=== PATIENT | female | born 1955 | race Caucasian/White ===

== ENCOUNTER 2016-08-09 15:06 | Emergency (ER) | payer MEDICARE ==
[2016-08-09 15:49] LABS: BASOPHIL % 0.5 % (0.0-0.4); Eosinophil % 2.4 % (0.00-5.0); Granulocytes % 65.3 % (36.0-66.0); Mean Corpuscular Hemoglobin 30.4 pg (26-32); Mean Platelet Volume 9.2 fl (6-9.5); Monocytes % 8.8 % (0.0-12.0); Platelet Count 260 K/mm3 (150-450); Red Blood Count 4.73 M/mm3 (4.1-5.4); Red Cell Distribution Width 13.4 % (11.5-14.0); White Blood Count 6.1 K/mm3 (4.0-10.5)
[2016-08-09 16:07] LABS: Collection Type VOID; Ph 5.5 (5-6)
[2016-08-09 16:08] LABS: COMPLETE URINE MICROSCOPIC? YES
[2016-08-09 16:15] LABS: Bacteria MODERATE /HPF (NEGATIVE); Epithelial Cells MANY /HPF (FEW); WBC 15-25 /HPF (0-5); Yeast FEW /HPF (NEGATIVE)
[2016-08-09 16:17] LABS: ALBUMIN 3.6 g/dL (3.4-5.0); ANION GAP 12.5 MEQ/L (5-15); BILIRUBIN,TOTAL 0.4 mg/dL (0.2-1.0); Carbon Dioxide 27.6 mEq/L (21-32); Potassium 4.8 mEq/L (3.5-5.1); Total Protein 7.2 gm/dL (6.4-8.2)
[2016-08-09 16:18] LABS: ACETAMINOPHEN 4.8 ug/ml (10-30)
--- NOTE | 2016-08-09 18:09 | ERPHSYRPT ---
- History of Present Illness Source: patient, old records, other (LMD) Exam Limitations: no limitations Patient Subjective Stated Complaint: PATIENT STATES FEELING SUICIDAL FOR A YEAR. SAW DR. BAUTISTA TODAY AND WANTED TO TRY DIFFERENT DEPRESSION MED. PATIENT TOLD DR. BAUTISTA THAT SHE HAD A PLAN TO CUT HER WRISTS IN THE BATHTUB. Triage Nursing Assessment: TO ROOM PER SELF. PATIENT COOPERATIVE, A/O, SKIN W/D , COLOR NORMAL. STATES HAS BEEN HAVING SUICIDAL THOUGHTS FOR ONE YEAR AND WANTED TO GET MEDS CHANGED TODAY AT DR'S OFFICE. TOLD DR. BAUTISTA SHE HAD A PLAN TO CUT HER WRISTS AND DR. BAUTISTA WANTED HER SEEN IN ER Timing/Duration: today (expressed suicidal plans to LMD and staff), week(s) ( worsening of depression), constant (depression) Severity of Symptoms-Max: severe Severity of Symptoms-Current: moderate Context related to: living circumstances, other (life in general) Suicidal thoughts: specific plan Associated Symptoms: depressed Previous symptoms: same symptoms as today, recently seen Hx Tetanus, Diphtheria Vaccination/Date Given: No Hx Influenza Vaccination/Date Given: No Hx Pneumococcal Vaccination/Date Given: No <PAOLO CARREON - Last Filed: 08/09/16 18:04> <MATTEO PATEL - Last Filed: 08/09/16 23:27> - History of Present Illness Time Seen by Provider: 08/09/16 15:23 Physician History: patient brought to ED by office staff from her LMD because she was depressed in the office and stated she had a plan - " I'm going to get in the bath tub and open my veins ( i.e. cut my wrists). She states she has been depressed for years; her current meds is not helping and hasn't helped for months; no history of suicidal attempts but states she has had the plan for years, just never acted on it. She is not sure if she is rady to act on it now or not; no other acute complaints; became more depressed when recently diagnosed with DM (PAOLO CARREON) Allergies/Adverse Reactions: ibuprofen [From Motrin] Adverse Reaction (Intermediate, Unverified 07/24/11 21: 02) abdominal pain NSAIDS (Non-Steroidal Anti-Inflamma Adverse Reaction (Intermediate, Unverified 07/24/11 21:03) abdominal pain acetaminophen [From Tylox] Adverse Reaction (Mild, Unverified 07/24/11 21:03) Nausea oxycodone HCl [From Tylox] Adverse Reaction (Mild, Unverified 07/24/11 21:03) Nausea Home Medications: Citalopram Hydrobromide 20 mg* [ceLEXa 20 MG] 60 mg PO HS 07/24/11 [History] Hydrocodone Bit/Acetaminophen [Vicodin Hp Tablet] 1 each PO Q6H PRN PRN [History] Lisinopril 20 mg PO BID 07/24/11 [History] Magnesium 400 mg PO DAILY 07/24/11 [History] Omeprazole 20 MG [Prilosec 20 mg] 40 mg PO DAILY 07/24/11 [History] Potassium Chloride 20 Meq [Klor-Con 20 MEQ] 40 meq PO BID 07/24/11 [History] Alprazolam 1 mg [Xanax 1 mg] 1 mg PO QID 08/09/16 [History] Furosemide 40 mg [Lasix 40 MG] 40 mg PO DAILY 08/09/16 [History] Metformin HCl 500 mg [Glucophage 500 MG] 500 mg PO BID 08/09/16 [History] - Past Medical History Pertinent Past Medical History: Yes Cardiac History: Hypertension Endocrine Medical History: Diabetes Type II Musculoskeletal History: Osteoarthritis, Other Psycho-Social History: Anxiety, Depression Other Medical History: Chronic Pain - Past Surgical History Past Surgical History: Yes Gastrointestinal: Cholecystectomy Musculoskeletal: Orthopedic Surgery Other Surgical History: BOTH KNEES - Social History Smoking Status: Current every day smoker How long have you smoked: 22 years Exposure to second hand smoke: Yes Alcohol Use: None Drug Use: none Patient Lives Alone: Yes Significant Family History: no pertinent family hx - Female History Hx Now: No <PAOLO CARREON - Last Filed: 08/09/16 18:04> - Review of Systems Constitutional: No Symptoms Eyes: No Symptoms Ears, Nose, & Throat: No Symptoms Respiratory: No Cough, No Dyspnea, No Wheezing Cardiac: No Chest Pain, No Palpitations, No Syncope Abdominal/Gastrointestinal: No Abdominal Pain, No Nausea, No Vomiting, No Diarrhea Genitourinary Symptoms: No Dysuria, No Frequency, No Hematuria Musculoskeletal: No Symptoms Skin: No Symptoms Neurological: No Symptoms Psychological: Depression, Suicidal Ideations, No Alcohol Abuse, No Drug Abuse, No Anxiety, No Hallucinations Endocrine: Polyuria, Polydipsia Hematologic/Lymphatic: No Symptoms Immunological/Allergic: No Symptoms <PAOLO CARREON - Last Filed: 08/09/16 18:04> - Physical Exam General Appearance: mild distress, alert Eyes, Ears, Nose, Throat Exam: normal ENT inspection, TMs normal, pharynx normal , moist mucous membranes Neck Exam: normal inspection, non-tender, supple, full range of motion, No Kernig's, No JVD Respiratory Exam: normal breath sounds, lungs clear, airway intact, No chest tenderness, No respiratory distress Cardiovascular Exam: regular rate/rhythm, normal heart sounds, normal peripheral pulses, capillary refill <2 sec, No murmur Gastrointestinal/Abdominal Exam: soft, normal bowel sounds, No tenderness, No guarding, No rebound, No organomegaly Extremities Exam: normal inspection, normal range of motion, No evidence of injury, No edema Peripheral Pulses: carotid (R): 4+, carotid (L): 4+, femoral (R): 4+, femoral (L ): 4+ Current Suicidality: has suicide plan Neurological Exam: alert, calm, insurance sales executive II-XII nml as tested, oriented x 3, responds to pain, depressed affect Appearance: appropriate appearance, appropriate insight, no memory impairment Behavior/Eye Contact/Speech: alert & cooperative, cooperative, good eye contact , normal speech Thoughts/Hallucinations: normal thought pattern, no apparent hallucination, No delusions, No flight of ideas, No grandiose, No paranoid Skin Exam: normal color, warm, dry, No rash SpO2 Interpretation: normal SpO2: 98 Oxygen Delivery: Room Air <PAOLO CARREON - Last Filed: 08/09/16 18:04> - Course Nursing assessment & vital signs reviewed: Yes <PAOLO CARREON - Last Filed: 08/09/16 18:04> <MATTEO PATEL - Last Filed: 08/09/16 23:27> Ordered Tests: Active Orders 24 hr Category Date Time Status Accucheck STAT Care 08/09/16 15:22 Completed Psychiatric Evaluation STAT Care 08/09/16 15:22 Active Re-Check Vital Signs STAT Care 08/09/16 15:22 Completed Regular Diet Diet 08/09/16 Breakfast Active ACETAMINOPHEN Stat Lab 08/09/16 15:43 Completed CBC W DIFF Stat Lab 08/09/16 15:43 Completed CMP Stat Lab 08/09/16 15:43 Completed CULTURE,URINE Stat Lab 08/09/16 15:22 Received Ethyl Alcohol,Urine Stat Lab 08/09/16 15:35 Completed SALICYLATE Stat Lab 08/09/16 15:43 Completed UA W/ MICROSCOPIC Stat Lab 08/09/16 15:35 Completed Urine Triage Profile Stat Lab 08/09/16 15:35 Completed Medication Summary Generic Name Dose Route Start Last Admin Trade Name Freq PRN Reason Stop Dose Admin Nitrofurantoin Macrocrystals 100 mg 08/09/16 23:21 Macrobid 100mg Capsule PO 08/09/16 23:22 STAT ONE Lab/Rad Data: Laboratory Result Diagrams 08/09/16 15:43 08/09/16 15:43 Laboratory Results 08/09/16 08/09/16 08/09/16 Range/Units 15:43 15:43 15:35 WBC 6.1 (4.0-10.5) K/mm3 RBC 4.73 (4.1-5.4) M/mm3 Hgb 14.4 (12.0-16.0) gm/dl Hct 45.4 (35-47) % MCV 96.0 (78-100) fl MCH 30.4 (26-32) pg MCHC 31.7 L (32-36) g/dl RDW 13.4 (11.5-14.0) % Plt Count 260 (150-450) K/mm3 MPV 9.2 (6-9.5) fl Gran % 65.3 (36.0-66.0) % Lymphocytes % 23.0 L (24.0-44.0) % Monocytes % 8.8 (0.0-12.0) % Eosinophils % 2.4 (0.00-5.0) % Basophils % 0.5 (0.0-0.4) % Basophils # 0.03 (0-0.4) Sodium 139 (136-145) mEq/L Potassium 4.8 (3.5-5.1) mEq/L Chloride 104 (98-107) mEq/L Carbon Dioxide 27.6 (21-32) mEq/L Anion Gap 12.5 (5-15) MEQ/L BUN 15 (9-20) mg/dL Creatinine 1.10 (0.55-1.30) mg/dl Estimated GFR 54 ML/MIN Glucose 97 (70-110) MG/DL Calcium 10.3 H (8.5-10.1) mg/dL Total Bilirubin 0.4 (0.2-1.0) mg/dL AST 31 (15-37) U/L ALT 41 (12-78) U/L Alkaline Phosphatase 65 (46-116) U/L Serum Total Protein 7.2 (6.4-8.2) gm/dL Albumin 3.6 (3.4-5.0) g/dL Ur Collection Type Urine Color (YELLOW) Urine Appearance (CLEAR) Urine pH 5.5 (5-6) Ur Specific [place] (1.005-1.025) Urine Protein (Negative) Urine Glucose (UA) (NEGATIVE) mg/dL Urine Ketones (NEGATIVE) Urine Nitrite (NEGATIVE) Urine Bilirubin (NEGATIVE) Urine Urobilinogen (0-1) mg/dL Urine WBC (Auto) (NEGATIVE) Urine RBC (Auto) (0-5) Jason/ul Urine Microscopic RBC (0-2) /HPF Urine Microscopic WBC (0-5) /HPF Ur Epithelial Cells (FEW) /HPF Urine Bacteria (NEGATIVE) /HPF Urine Yeast (NEGATIVE) /HPF Salicylates 4.0 (2.8-20.0) mg/dl Urine Opiates Level (NEGATIVE) Ur Methadone (NEGATIVE) Acetaminophen 4.8 L (10-30) ug/ml Urine Barbiturates (NEGATIVE) Ur Phencyclidine (PCP) (NEGATIVE) Urine Amphetamine (NEGATIVE) U Benzodiazepine Level (NEGATIVE) Urine Cocaine (NEGATIVE) Urine Marijuana (THC) (NEGATIVE) Urine Ethyl Alcohol 3 (0.00-20) mg/dl Specimen Received 08/09/16 08/09/16 Range/Units 15:35 15:35 WBC (4.0-10.5) K/mm3 RBC (4.1-5.4) M/mm3 Hgb (12.0-16.0) gm/dl Hct (35-47) % MCV (78-100) fl MCH (26-32) pg MCHC (32-36) g/dl RDW (11.5-14.0) % Plt Count (150-450) K/mm3 MPV (6-9.5) fl Gran % (36.0-66.0) % Lymphocytes % (24.0-44.0) % Monocytes % (0.0-12.0) % Eosinophils % (0.00-5.0) % Basophils % (0.0-0.4) % Basophils # (0-0.4) Sodium (136-145) mEq/L Potassium (3.5-5.1) mEq/L Chloride (98-107) mEq/L Carbon Dioxide (21-32) mEq/L Anion Gap (5-15) MEQ/L BUN (9-20) mg/dL Creatinine (0.55-1.30) mg/dl Estimated GFR ML/MIN Glucose (70-110) MG/DL Calcium (8.5-10.1) mg/dL Total Bilirubin (0.2-1.0) mg/dL AST (15-37) U/L ALT (12-78) U/L Alkaline Phosphatase (46-116) U/L Serum Total Protein (6.4-8.2) gm/dL Albumin (3.4-5.0) g/dL Ur Collection Type VOID Urine Color YELLOW (YELLOW) Urine Appearance SLIGHTLY CLOUDY (CLEAR) Urine pH 5.5 (5-6) Ur Specific [place] 1.025 (1.005-1.025) Urine Protein TRACE (Negative) Urine Glucose (UA) 500 (NEGATIVE) mg/dL Urine Ketones NEGATIVE (NEGATIVE) Urine Nitrite NEGATIVE (NEGATIVE) Urine Bilirubin NEGATIVE (NEGATIVE) Urine Urobilinogen 0.2 (0-1) mg/dL Urine WBC (Auto) NEGATIVE (NEGATIVE) Urine RBC (Auto) TRACE-INTACT (0-5) Jason/ul Urine Microscopic RBC 0-2 (0-2) /HPF Urine Microscopic WBC 15-25 (0-5) /HPF Ur Epithelial Cells MANY (FEW) /HPF Urine Bacteria MODERATE (NEGATIVE) /HPF Urine Yeast FEW (NEGATIVE) /HPF Salicylates (2.8-20.0) mg/dl Urine Opiates Level POS. (NEGATIVE) Ur Methadone NEG. (NEGATIVE) Acetaminophen (10-30) ug/ml Urine Barbiturates NEG. (NEGATIVE) Ur Phencyclidine (PCP) NEG. (NEGATIVE) Urine Amphetamine NEG. (NEGATIVE) U Benzodiazepine Level POS. (NEGATIVE) Urine Cocaine NEG. (NEGATIVE) Urine Marijuana (THC) NEG. (NEGATIVE) Urine Ethyl Alcohol (0.00-20) mg/dl Specimen Received 08/09/16 [id number] reviewed (PAOLO CARREON) - Progress Progress: re-examined (after labs) Discussed with .: Other (Psyche consult requested) Counseled pt/family regarding: lab results, diagnosis, need for follow-up <PAOLO CARREON - Last Filed: 08/09/16 18:04> <MATTEO PATEL - Last Filed: 08/09/16 23:27> - Progress Progress Note: 08/09/16 18:11 no cahnge on recheck; labs ok; still has plan but doesn't plan on executing it at this time; psyche consult pending; disposition will be dependent on their recommendation; Dr Patel here and will assume her care. (PAOLO CARREON) 08/09/16 22:50 Pt was initially seen per Dr Carreon. She is currently still speaking with [facility] behavioralist via teleconsult. 08/09/16 23:22 Spoke to Alaina at . She advised pt stable for release. Needs psychiatrist follow up. Options for a psychiatrist given. Will Rx uti as well. Pt comfortable going home. (MATTEO PATEL) - Departure Critical Care Time: No <PAOLO CARREON - Last Filed: 08/09/16 18:04> - Departure Time of Disposition: 23:24 Departure Disposition: Home Critical Care Time: No <MATTEO PATEL - Last Filed: 08/09/16 23:27> - Departure Clinical Impression: UTI (urinary tract infection) Depression Qualifiers: Depression Type: major depressive disorder Major depression recurrence: recurrent Active/Remission status: currently active Major depression episode severity: moderate Qualified Code(s): F33.1 - Major depressive disorder, recurrent, moderate Condition: Stable Referrals: APARNA BAUTISTA MD [Primary Care Provider] - RUSLAN URIBE [NON-STAFF PHY W/O PRIVILEGES] - PREETHI HERNANDEZ MD [NON-STAFF PHY W/O PRIVILEGES] - Instructions: Depression -- Adult Additional Instructions: Rx macrobid for UTI. Follow up with Dr Bautista. Stay with family sofia. Call [phone] crisis line or to speak to a counsellor anytime. Arrange follow up with a psychiatrist. Dr Uribe [phone] Durham at [facility] are possible options. Return for problems or concerns. Prescriptions: Nitrofurantoin Macro 100 mg [Macrobid 100MG Capsule] 100 mg PO BID #14 capsule
[2016-08-09] MEDS ORDERED: Macrobid 100MG Capsule PO ONE (23:21)
[2016-08-09] MEDS ORDERED: Macrobid 100MG Capsule ONE (23:24)
[2016-08-10 00:04] VITALS: BP 112/65; PULSE 65; O2SAT 96
== END 2016-08-10 00:13 | disposition home or self-care (01) ==
LOC: ED 15:06
DX: F33.1 Major depressive disorder, recurrent, moderate (principal); N39.0 Urinary tract infection, site not specified; E11.9 Type 2 diabetes mellitus without complications; Z79.899 Other long term (current) drug therapy; Z79.84 Long term (current) use of oral hypoglycemic drugs
CPT/HCPCS: 99285; 81000; 36415; 80307 ×2; 80320; 83986; 85025; 80053; 87086; G0481; 90791; Q3014; A9270-GY

== ENCOUNTER 2017-07-29 15:30 | Emergency (ER) | payer MEDICARE ==
--- NOTE | 2017-07-29 15:52 | ERPHSYRPT ---
- History of Present Illness Source: patient Hx Tetanus, Diphtheria Vaccination/Date Given: No Hx Influenza Vaccination/Date Given: No Hx Pneumococcal Vaccination/Date Given: No <HALEIGH ISSA - Last Filed: 07/29/17 18:44> <SABINE SAUCEDA - Last Filed: 07/29/17 23:39> - History of Present Illness Time Seen by Provider: 07/29/17 15:49 Physician History: mild to mod suicidal ideation today, hx depression, plans to hurt herself w/ razor blades, poor eye contact, speech fluent, denies any pain (HALEIGH ISSA) Allergies/Adverse Reactions: ibuprofen [From Motrin] Adverse Reaction (Intermediate, Verified 07/29/17 16:32) abdominal pain NSAIDS (Non-Steroidal Anti-Inflamma Adverse Reaction (Intermediate, Verified 11/08 16:32) abdominal pain acetaminophen [From Tylox] Adverse Reaction (Mild, Verified 07/29/17 16:32) Nausea oxycodone HCl [From Tylox] Adverse Reaction (Mild, Verified 07/29/17 16:32) Nausea Home Medications: Citalopram Hydrobromide 20 mg* [ceLEXa 20 MG] 60 mg PO HS 07/24/11 [History] Hydrocodone Bit/Acetaminophen [Vicodin Hp Tablet] 1 each PO Q6H PRN PRN [History] Lisinopril 20 mg PO BID 07/24/11 [History] Omeprazole 20 MG [Prilosec 20 mg] 40 mg PO DAILY 07/24/11 [History] Potassium Chloride 20 Meq [Klor-Con 20 MEQ] 40 meq PO BID 07/24/11 [History] Alprazolam 1 mg [Xanax 1 mg] 1 mg PO QID 08/09/16 [History] Metformin HCl 500 mg [Glucophage 500 MG] 500 mg PO BID 08/09/16 [History] Dapagliflozin Propanediol [Farxiga] 10 mg PO DAILY 07/29/17 [History] Potassium Chloride [Klor-Con M10] 10 meq PO DAILY 07/29/17 [History] Pravastatin Sodium [Pravastatin Sodium] 40 mg PO DAILY 07/29/17 [History] Quetiapine Fumarate [Quetiapine Fumarate] 50 mg PO HS 07/29/17 [History] hydroCHLOROthiazide [Hydrochlorothiazide] 12.5 mg PO DAILY 07/29/17 [History] - Past Medical History Pertinent Past Medical History: Yes Cardiac History: Hypertension Endocrine Medical History: Diabetes Type II Musculoskeletal History: Osteoarthritis, Other Psycho-Social History: Anxiety, Depression Other Medical History: Chronic Pain - Past Surgical History Past Surgical History: Yes Gastrointestinal: Cholecystectomy Musculoskeletal: Orthopedic Surgery Other Surgical History: BOTH KNEES - Social History Smoking Status: Current every day smoker How long have you smoked: 22 years Exposure to second hand smoke: Yes Alcohol Use: None Drug Use: none Patient Lives Alone: Yes Significant Family History: no pertinent family hx <HALEIGH ISSA - Last Filed: 07/29/17 18:44> - Review of Systems Constitutional: No Fever Ears, Nose, & Throat: No Mouth Pain Respiratory: No Dyspnea Cardiac: No Chest Pain Abdominal/Gastrointestinal: No Abdominal Pain Musculoskeletal: No Back Pain, No Neck Pain Skin: No Skin Lesions Neurological: No Dizziness, No Focal Weakness, No Headache Psychological: Depression, Suicidal Ideations <HALEIGH ISSA - Last Filed: 07/29/17 18:44> - Physical Exam General Appearance: no apparent distress Eyes, Ears, Nose, Throat Exam: moist mucous membranes Neck Exam: non-tender Respiratory Exam: normal breath sounds Cardiovascular Exam: regular rate/rhythm Gastrointestinal/Abdominal Exam: soft, No tenderness Neurological Exam: alert, oriented x 3, flat Appearance: appropriate appearance Behavior/Eye Contact/Speech: cooperative, normal speech Thoughts/Hallucinations: No auditory hallucinations Skin Exam: warm, dry <HALEIGH ISSA - Last Filed: 07/29/17 18:44> - Nursing Vital Signs Nursing Vital Signs: Initial Vital Signs Temperature 99.2 F 07/29/17 15:56 Pulse Rate 85 07/29/17 15:56 Respiratory Rate 16 07/29/17 15:56 Blood Pressure 149/110 07/29/17 15:56 O2 Sat by Pulse Oximetry 94 L 07/29/17 15:56 Pain Scale Pain Intensity 0 Ordered Tests: Active Orders 24 hr Category Date Time Status EKG-ER Only STAT Care 07/29/17 15:45 Active ACETAMINOPHEN Stat Lab 07/29/17 16:20 Completed CBC W DIFF Stat Lab 07/29/17 16:20 Completed CMP Stat Lab 07/29/17 16:20 Completed ETHYL ALCOHOL Stat Lab 07/29/17 16:20 Completed SALICYLATE Stat Lab 07/29/17 16:20 Completed Urine Triage Profile Stat Lab 07/29/17 16:25 Completed Lab/Rad Data: Laboratory Result Diagrams 07/29/17 16:20 07/29/17 16:20 Laboratory Results 07/29/17 07/29/17 07/29/17 Range/Units 16:25 16:20 16:20 WBC 5.9 (4.0-10.5) K/mm3 RBC 4.75 (4.1-5.4) M/mm3 Hgb 14.2 (12.0-16.0) gm/dl Hct 43.8 (35-47) % MCV 92.2 (78-100) fl MCH 29.9 (26-32) pg MCHC 32.4 (32-36) g/dl RDW 13.2 (11.5-14.0) % Plt Count 305 (150-450) K/mm3 MPV 9.0 (6-9.5) fl Gran % 57.6 (36.0-66.0) % Eos # (Auto) 0.14 (0-0.5) Absolute Lymphs (auto) 1.85 (1.0-4.6) Absolute Monos (auto) 0.44 (0.0-1.3) Lymphocytes % 31.5 (24.0-44.0) % Monocytes % 7.5 (0.0-12.0) % Eosinophils % 2.4 (0.00-5.0) % Basophils % 1.0 (0.0-0.4) % Absolute Granulocytes 3.39 (1.4-6.9) Basophils # 0.06 (0-0.4) Sodium 137 (137-145) mmol/L Potassium 4.7 (3.5-5.1) mmol/L Chloride 101 (98-107) mmol/L Carbon Dioxide 28 (22-30) mmol/L Anion Gap 12.8 (5-15) MEQ/L BUN 19 H (7-17) mg/dL Creatinine 0.93 (0.52-1.04) mg/dL Estimated GFR > 60.0 ML/MIN Glucose 116 H (74-106) mg/dL Calcium 10.6 H (8.4-10.2) mg/dL Total Bilirubin 0.30 (0.2-1.3) mg/dL AST 30 (14-36) U/L ALT 28 (0-35) U/L Alkaline Phosphatase 54 (38-126) U/L Serum Total Protein 7.3 (6.3-8.2) g/dL Albumin 4.1 (3.5-5.0) g/dL Salicylates < 1.0 L (2-20) mg/dL Urine Opiates Level POSITIVE (NEGATIVE) Ur Methadone NEGATIVE (NEGATIVE) Acetaminophen < 10 L (10-30) ug/ml Urine Barbiturates NEGATIVE (NEGATIVE) Ur Phencyclidine (PCP) NEGATIVE (NEGATIVE) Urine Amphetamine NEGATIVE (NEGATIVE) U Benzodiazepine Level POSITIVE (NEGATIVE) Urine Cocaine NEGATIVE (NEGATIVE) Urine Marijuana (THC) NEGATIVE (NEGATIVE) Ethyl Alcohol < 10 (0-10) mg/dL <HALEIGH ISSA - Last Filed: 07/29/17 18:44> - Progress Progress: unchanged Counseled pt/family regarding: diagnosis, need for follow-up <SABINE SAUCEDA - Last Filed: 07/29/17 23:39> - Progress Progress Note: 07/29/17 18:[address] Sauceda at 19:00 (HALEIGH ISSA) 07/29/17 19:10 Pt care discussed and care accepted from Dr Issa at 19:00. 07/29/17 23:38 Pt detained by emergency fpc signed by Judge James James. (SABINE SAUCEDA) <HALEIGH ISSA - Last Filed: 07/29/17 18:44> - Departure Time of Disposition: 23:32 Departure Disposition: Transfer (transfer by emergency fpc per Judge HR James to [facility] per Dr Perez.) Critical Care Time: No <SABINE SAUCEDA - Last Filed: 07/29/17 23:39> - Departure Clinical Impression: Depression, Suicidal ideations Condition: Fair Referrals: APARNA VAZQUEZ MD [Primary Care Provider] -
[2017-07-29 16:28] LABS: Basophil (Absolute #) 0.06 (0-0.4); Eosinophil % 2.4 % (0.00-5.0); Eosinophil (Absolute #) 0.14 (0-0.5); Granulocyte Absolute (ANC) 3.39 (1.4-6.9); Granulocytes % 57.6 % (36.0-66.0); Hematocrit 43.8 % (35-47); Hemoglobin 14.2 gm/dl (12.0-16.0); Lymphocyte (Absolute #) 1.85 (1.0-4.6); Lymphocytes % 31.5 % (24.0-44.0); Mean Cell Volume 92.2 fl (78-100); Mean Corpuscular Hemoglobin 29.9 pg (26-32); Mean Corpuscular Hgb Concent. 32.4 g/dl (32-36); Monocyte (Absolute #) 0.44 (0.0-1.3); Monocytes % 7.5 % (0.0-12.0); Platelet Count 305 K/mm3 (150-450); Red Blood Count 4.75 M/mm3 (4.1-5.4); Red Cell Distribution Width 13.2 % (11.5-14.0); White Blood Count 5.9 K/mm3 (4.0-10.5)
[2017-07-29 16:43] LABS: ALBUMIN 4.1 g/dL (3.5-5.0); ALKALINE PHOSPHATASE 54 U/L (38-126); ANION GAP 12.8 MEQ/L (5-15); BLOOD UREA NITROGEN 19 mg/dL (7-17); CHLORIDE 101 mmol/L (98-107); Calcium 10.6 mg/dL (8.4-10.2); Carbon Dioxide 28 mmol/L (22-30); Creatinine 1 0.93 mg/dL (0.52-1.04); Glucose 116 mg/dL (74-106); Potassium 4.7 mmol/L (3.5-5.1); SGOT/AST 30 U/L (14-36); SGPT/ALT 28 U/L (0-35); SODIUM 137 mmol/L (137-145); Total Protein 7.3 g/dL (6.3-8.2)
[2017-07-29 16:47] LABS: ACETAMINOPHEN < 10 ug/ml (10-30); ETHYL ALCOHOL < 10 mg/dL (0-10); SALICYLATE < 1.0 mg/dL (2-20)
[2017-07-29 17:03] LABS: Amphetamine,Urine NEGATIVE (NEGATIVE); Barbiturate,Urine NEGATIVE (NEGATIVE); Benzodiazepine,Urine POSITIVE (NEGATIVE); Cocaine,Urine NEGATIVE (NEGATIVE); Methadone,Urine NEGATIVE (NEGATIVE); Opiate,Urine POSITIVE (NEGATIVE); PCP,Urine NEGATIVE (NEGATIVE); THC,Urine NEGATIVE (NEGATIVE)
[2017-07-30 00:04] VITALS: BP 119/67; PULSE 57; O2SAT 97
== END 2017-07-30 00:02 | disposition short-term general hospital (02) ==
LOC: ED 15:30
DX: F32.9 Major depressive disorder, single episode, unspecified (principal); R45.851 Suicidal ideations; E11.9 Type 2 diabetes mellitus without complications; Z79.84 Long term (current) use of oral hypoglycemic drugs; I10 Essential (primary) hypertension; Z79.899 Other long term (current) drug therapy
CPT/HCPCS: 36415; 80053; 80307; 85025; 90791; 93005; 99285; G0481; Q3014; G0480

== ENCOUNTER 2018-10-10 11:13 | Emergency (ER) | payer MEDICARE ==
[2018-10-10] MEDS ORDERED: Zestril 20 MG*** 20 MG, hydroDIURIL 25 MG*** 25 MG PO STA ×2 (11:44)
[2018-10-10] MEDS ORDERED: Catapres 0.1 MG PO ONE (11:44)
--- NOTE | 2018-10-10 11:47 | ERPHSYRPT ---
- History of Present Illness Time Seen by Provider: 10/10/18 11:45 Source: patient Exam Limitations: no limitations Patient Subjective Stated Complaint: Pt stated that her blood pressure has been running high since May and today she got up and it was 186/118 and so she came right to the ER and did not take her blood pressure medicine, asymptomatic Triage Nursing Assessment: Pt walked into the ER, tremors in hands that she states is normal, BP 182/86, all other vitals wnl, pulses normal, normal S1-S2 sounds heard, denies pain, skin normal warm and dry, doesn't appear to be in any distress Physician History: Pt stated that her blood pressure has been running high since May and today she got up and it was 186/118 and so she came right to the ER and did not take her blood pressure medicine. She denies any symptoms Timing/Duration: today Aspirin Treatment Today: 81 mg x 1 Associated Symptoms: denies symptoms Allergies/Adverse Reactions: methadone Allergy (Verified 10/10/18 11:27) ibuprofen [From Motrin] Adverse Reaction (Intermediate, Verified 07/29/17 16:32) abdominal pain NSAIDS (Non-Steroidal Anti-Inflamma Adverse Reaction (Intermediate, Verified 11/08 16:32) abdominal pain acetaminophen [From Tylox] Adverse Reaction (Mild, Verified 07/29/17 16:32) Nausea oxycodone HCl [From Tylox] Adverse Reaction (Mild, Verified 07/29/17 16:32) Nausea Home Medications: Hydrocodone Bit/Acetaminophen [Vicodin Hp Tablet] 1 each PO BID 07/24/11 [ History] Lisinopril 20 mg PO BID 07/24/11 [History] Omeprazole 20 MG [Prilosec 20 mg] 40 mg PO DAILY 07/24/11 [History] Alprazolam 1 mg [Xanax 1 mg] 1 mg PO HS 08/09/16 [History] Metformin HCl 500 mg [Glucophage 500 MG] 500 mg PO BID 08/09/16 [History] Dapagliflozin Propanediol [Farxiga] 10 mg PO DAILY 07/29/17 [History] Potassium Chloride [Klor-Con M10] 10 meq PO DAILY 07/29/17 [History] Amitriptyline HCl 50 mg PO HS 10/10/18 [History] Atorvastatin Calcium [Lipitor] 40 mg PO DAILY 10/10/18 [History] Fluoxetine HCl 40 mg PO DAILY 10/10/18 [History] Hx Tetanus, Diphtheria Vaccination/Date Given: No Hx Influenza Vaccination/Date Given: No Hx Pneumococcal Vaccination/Date Given: No - Review of Systems Constitutional: No Fever, No Chills Eyes: No Symptoms Ears, Nose, & Throat: No Symptoms Respiratory: No Cough, No Dyspnea Cardiac: No Chest Pain, No Edema, No Syncope Abdominal/Gastrointestinal: No Abdominal Pain, No Nausea, No Vomiting, No Diarrhea Genitourinary Symptoms: No Dysuria Musculoskeletal: No Back Pain, No Neck Pain Skin: No Rash Neurological: No Dizziness, No Focal Weakness, No Sensory Changes Psychological: No Symptoms Endocrine: No Symptoms All Other Systems: Reviewed and Negative - Past Medical History Pertinent Past Medical History: Yes Cardiac History: Hypertension Endocrine Medical History: Diabetes Type II Musculoskeletal History: Osteoarthritis, Other Psycho-Social History: Anxiety, Depression Other Medical History: Chronic Pain - Past Surgical History Past Surgical History: Yes Gastrointestinal: Cholecystectomy Musculoskeletal: Orthopedic Surgery Other Surgical History: BOTH KNEES - Social History Smoking Status: Former smoker How long have you smoked: 22 years Exposure to second hand smoke: Yes Alcohol Use: None Drug Use: none Patient Lives Alone: Yes Significant Family History: no pertinent family hx - Female History Hx Now: No - Nursing Vital Signs Nursing Vital Signs: Initial Vital Signs Temperature 98.2 F 10/10/18 11:17 Pulse Rate 92 H 10/10/18 11:17 Blood Pressure 182/86 10/10/18 11:17 O2 Sat by Pulse Oximetry 97 10/10/18 11:17 Pain Scale Pain Intensity 0 - Physical Exam General Appearance: no apparent distress, alert Eye Exam: PERRL/EOMI, eyes nml inspection Ears, Nose, Throat Exam: normal ENT inspection, moist mucous membranes Neck Exam: normal inspection, non-tender, supple Respiratory Exam: normal breath sounds, lungs clear, No respiratory distress Cardiovascular Exam: regular rate/rhythm, normal heart sounds, No edema Gastrointestinal/Abdomen Exam: soft, No tenderness, No mass Back Exam: normal inspection, No CVA tenderness, No vertebral tenderness Extremity Exam: normal inspection, normal range of motion Neurologic Exam: alert, oriented x 3, cooperative, normal mood/affect, nml cerebellar function, sensation nml, No motor deficits Skin Exam: normal color, warm, dry Lymphatic Exam: No adenopathy SpO2: 97 - Course Nursing assessment & vital signs reviewed: Yes Ordered Tests: Active Orders 24 hr Category Date Time Status Vital Signs .[id number],[id number] Care 10/10/18 12:13 Active Medication Summary Discontinued Medications Generic Name Dose Route Start Last Admin Trade Name Renetta PRN Reason Stop Dose Admin Clonidine 0.1 mg 10/10/18 11:44 10/10/18 11:58 Catapres 0.1 Mg PO 10/10/18 11:45 0.1 mg STAT ONE Administration Clonidine Confirm 10/10/18 11:48 Catapres 0.1 Mg Administered 10/10/18 11:49 Dose 0.1 mg .ROUTE .STK-MED ONE Lisinopril 20 mg/ 0 mg 10/10/18 11:44 10/10/18 11:58 Hydrochlorothiazide 25 mg PO 10/10/18 11:45 45 mg DAILY STA Administration Hydrochlorothiazide Confirm 10/10/18 11:52 Hydrodiuril 25 Mg Administered 10/10/18 11:53 Dose 25 mg .ROUTE .STK-MED ONE Lisinopril Confirm 10/10/18 11:52 Zestril 20 Mg Administered 10/10/18 11:53 Dose 20 mg .ROUTE .STK-MED ONE - Progress Progress: improved Air Movement: good Blood Culture(s) Obtained: No Antibiotics given: No Counseled pt/family regarding: diagnosis, need for follow-up - Departure Departure Disposition: Home Clinical Impression: Hypertensive urgency Condition: Stable Critical Care Time: No Referrals: APARNA VAZQUEZ MD [Primary Care Provider] - Instructions: Malignant Hypertension (DC) Additional Instructions: take 20 mg lisinopril at 7 PM today. Start lisinopril 20 mg tomorrow AM, dont try to get up too quickly otherwise it will cause you dizziness. follow up with Dr Baer in 2-3 days Discharge/Care Plan JACKIE BUCKLEY was seen on 10/10/18 in the Emergency Room. The patient was counseled regarding Diagnosis,Lab results, Imaging studies, need for follow up and when to return to the Emergency Room. Prescriptions given: Discharge Note I have spoken with the patient and/or caregivers. I have explained the patient' s condition, diagnosis and treatment plan based on the information available to me at this time. I have answered the patient's and/or caregiver's questions and addressed any concerns. The patient and/or caregivers have as good understanding of the patient's diagnosis, condition and treatment plan as can be expected at this point. The vital signs have been stable. The patient's condition is stable and appropriate for discharge from the emergency department. The patient will pursue further outpatient evaluation with the primary care physician or other designated or consulting physician as outlined in the discharge instructions. The patient and/or caregivers are agreeable to this plan of care and follow-up instructions have been explained in detail. The patient and/or caregivers have received these instruction. The patient/and or caregivers are aware that any significant change in condition or worsening of symptoms should prompt an immediate return to this or the closest emergency department or call 911.
[2018-10-10] MEDS ORDERED: Catapres 0.1 MG ONE (11:48)
[2018-10-10] MEDS ORDERED: hydroDIURIL 25 MG ONE (11:52)
[2018-10-10] MEDS ORDERED: Zestril 20 MG ONE (11:52)
[2018-10-10 12:15] VITALS: BP 169/76; PULSE 79
[2018-10-10 12:25] VITALS: O2SAT 97
== END 2018-10-10 12:35 | disposition home or self-care (01) ==
LOC: ED 11:13
DX: I16.0 Hypertensive urgency (principal); Z79.899 Other long term (current) drug therapy
CPT/HCPCS: 99283; A9270-GY

== ENCOUNTER 2021-11-20 14:50 | Emergency (ER) | payer MEDICARE ==
--- NOTE | 2021-11-20 20:30 | ERPHSYRPT ---
- History of Present Illness Source: patient Exam Limitations: no limitations Patient Subjective Stated Complaint: "My legs have been swollen for 2 weeks and my left leg is really swollen and they feel tight". Triage Nursing Assessment: Pt presents to ER with complaints of bilateral lower extremity swelling x 2 weeks. Pt states left leg has been increasingly worse with swelling and her legs feel "tight". Pt denies pain. Is currently wearing compression stockings. Pt is alert and oriented x 3. Skin is pink, warm, and dry. Respirations are unlabored at this time. Pt is able to ambulate with slow gait. Physician History: 66 yo wf w B LE edema x 2 wks. Pt states that the pain is mild. She denies chest pain/dyspnea/fever/injury. Pt has a h/o DM/HTN and states that she had a similar problem in 2014. Method of Injury: unknown (No injury) Occurred: other (2 wks) Quality: constant Severity of Pain-Max: mild Severity of Pain-Current: mild Lower Extremities Pain: leg: bilateral (Mild) Modifying Factors: Improves With: movement Associated Symptoms: none Allergies/Adverse Reactions: methadone Allergy (Verified 11/20/21 15:59) ibuprofen [From Motrin] Adverse Reaction (Intermediate, Verified 11/20/21 15:59) abdominal pain NSAIDS (Non-Steroidal Anti-Inflamma Adverse Reaction (Intermediate, Verified 11/20/21 15:59) abdominal pain acetaminophen [From Tylox] Adverse Reaction (Mild, Verified 11/20/21 15:59) Nausea oxycodone HCl [From Tylox] Adverse Reaction (Mild, Verified 11/20/21 15:59) Nausea Home Medications: Hydrocodone/Acetaminophen [Vicodin Hp Tablet] 1 each PO TID 07/24/11 [History] Lisinopril 20 mg PO BID 07/24/11 [History] Omeprazole 20 MG [Prilosec 20 mg] 40 mg PO DAILY 07/24/11 [History] ALPRAZolam 1 MG [Xanax 1 mg] 1 mg PO HS 08/09/16 [History] Metformin HCl 500 mg [Glucophage 500 MG] 500 mg PO BID 08/09/16 [History] Dapagliflozin Propanediol [Farxiga] 10 mg PO DAILY 07/29/17 [History] Potassium Chloride [Klor-Con M10] 10 meq PO DAILY 07/29/17 [History] Atorvastatin Calcium [Lipitor] 40 mg PO DAILY 10/10/18 [History] Hx Tetanus, Diphtheria Vaccination/Date Given: No Hx Influenza Vaccination/Date Given: No Hx Pneumococcal Vaccination/Date Given: No Immunizations Up to Date: No Travel Risk - International Travel Have you traveled outside of the country in past 3 weeks: No - Coronavirus Screening Are you exhibiting any of the following symptoms?: No Close contact with a COVID-19 positive Pt in past 14-21 Days: No - Vaccine Status Have you recieved a Covid-19 vaccination: Yes Founder Ceo & President: [employer] - Vaccination Dates Date of 2cond Vaccination (if applicable): 2020 - Review of Systems Constitutional: No Symptoms Eyes: No Symptoms Ears, Nose, & Throat: No Symptoms Respiratory: No Symptoms Cardiac: No Symptoms Abdominal/Gastrointestinal: No Symptoms Genitourinary Symptoms: No Symptoms Skin: No Symptoms Neurological: No Symptoms Psychological: No Symptoms Endocrine: No Symptoms Hematologic/Lymphatic: No Symptoms Immunological/Allergic: No Symptoms - Past Medical History Pertinent Past Medical History: Yes Neurological History: Peripheral Neuropathy Cardiac History: High Cholesterol, Hypertension Endocrine Medical History: Diabetes Type II Musculoskeletal History: Osteoarthritis, Other Psycho-Social History: Anxiety, Depression Other Medical History: Chronic Pain - Past Surgical History Past Surgical History: Yes Gastrointestinal: Cholecystectomy Musculoskeletal: Orthopedic Surgery Other Surgical History: BOTH KNEES - Social History Smoking Status: Never smoker How long have you smoked: 22 years Exposure to second hand smoke: No Alcohol Use: None Drug Use: none Patient Lives Alone: Yes Significant Family History: no pertinent family hx - Nursing Vital Signs Nursing Vital Signs: Initial Vital Signs Temperature 96.3 F 11/20/21 15:54 Pulse Rate 91 H 11/20/21 15:54 Respiratory Rate 18 11/20/21 15:54 Blood Pressure 146/84 11/20/21 15:54 O2 Sat by Pulse Oximetry 97 11/20/21 15:54 Pain Scale Pain Intensity 0 Mildly hypertensive - Physical Exam General Appearance: no apparent distress Eyes, Ears, Nose, Throat Exam: normal ENT inspection, TMs normal, pharynx normal, moist mucous membranes Neck Exam: normal inspection, non-tender, supple, full range of motion, No Brudzinski, No Kernig's, No meningismus, No carotid bruit Cardiovascular/Respiratory Exam: normal breath sounds, regular rate/rhythm, heart sounds normal, No no respiratory distress Gastrointestinal/Abdominal Exam: non-tender, soft Back Exam: normal inspection, normal range of motion, No CVA tenderness, No vertebral tenderness Hips Exam: bilateral: non-tender, normal inspection, normal range of motion, no evidence of injury Legs Exam: bilateral leg: other (2+ B LE edema/NTTP/old scar R pre-tibial area/Chronic venous stasis changes L pretibial area/Good pedal pulses, distal sensation, and capillary return) Ankle Exam: bilateral ankle: swelling (Mod B) Foot Exam: bilateral foot: non-tender, normal inspection, normal range of motion, no evidence of injury DTR - Lower Extremities Exam: knee (R): 2+, knee (L): 2+ Neuro/Tendon Exam: normal sensation, normal motor functions, normal tendon functions, responds to pain, no evidence tendon injury, No motor deficit, No sensory deficit Mental Status Exam: alert, oriented x 3, cooperative Skin Exam: normal color, warm, dry SpO2 Interpretation: normal SpO2: 97 O2 Delivery: Room Air - Course Nursing assessment & vital signs reviewed: Yes Ordered Tests: Active Orders 24 hr Category Date Time Status CBC W DIFF Stat Lab 11/20/21 20:22 Completed CMP Stat Lab 11/20/21 20:22 Completed D-DIMER QUANTITATIVE Stat Lab 11/20/21 20:22 Completed NT PRO BNP Stat Lab 11/20/21 20:22 Completed TROPONIN Q4H Lab 11/20/21 20:30 Completed Lab/Rad Data: Laboratory Result Diagrams 11/20/21 20:22 11/20/21 20:22 Laboratory Results 11/20/21 11/20/21 11/20/21 Range/Units 20:30 20:22 20:22 WBC (4.0-10.5) x10^3/uL RBC (4.1-5.4) x10^6/uL Hgb (12.0-16.0) g/dL Hct (35-47) % MCV (78-100) fL MCH (26-32) pg MCHC (32-36) g/dL RDW (11.5-14.0) % Plt Count (150-450) x10^3/uL MPV (7.5-11.0) fL Gran % (36.0-66.0) % Immature Gran % (Auto) (0.00-0.4) % Nucleat RBC Rel Count (0.00-0.1) % Eos # (Auto) (0-0.5) x10^3/uL Immature Gran # (Auto) (0.00-0.03) x10^3u/L Absolute Lymphs (auto) (1.0-4.6) x10^3/uL Absolute Monos (auto) (0.0-1.3) x10^3/uL Absolute Nucleated RBC (0.00-0.01) x10^3u/L Lymphocytes % (24.0-44.0) % Monocytes % (0.0-12.0) % Eosinophils % (0.00-5.0) % Basophils % (0.0-0.4) % Absolute Granulocytes (1.4-6.9) x10^3/uL Basophils # (0-0.4) x10^3/uL D-Dimer 0.39 (0.0-0.50) mg/L Sodium 137 (137-145) mmol/L Potassium 4.3 (3.5-5.1) mmol/L Chloride 100 (98-107) mmol/L Carbon Dioxide 31 H (22-30) mmol/L Anion Gap 10.3 (5-15) MEQ/L BUN 33 H (7-17) mg/dL Creatinine 1.08 H (0.52-1.04) mg/dL Estimated GFR 53.9 ML/MIN Glucose 134 H (74-106) mg/dL Calcium 10.3 H (8.4-10.2) mg/dL Total Bilirubin 0.20 (0.2-1.3) mg/dL AST 21 (14-36) U/L ALT 22 (0-35) U/L Alkaline Phosphatase 48 (38-126) U/L Troponin I < 0.012 (0.000-0.034) ng/mL NT-Pro-B Natriuret Pep 110 (0-900) pg/mL Serum Total Protein 7.4 (6.3-8.2) g/dL Albumin 4.1 (3.5-5.0) g/dL 11/20/21 Range/Units 20:22 WBC 8.4 (4.0-10.5) x10^3/uL RBC 4.23 (4.1-5.4) x10^6/uL Hgb 11.5 L (12.0-16.0) g/dL Hct 38.3 (35-47) % MCV 90.5 (78-100) fL MCH 27.2 (26-32) pg MCHC 30.0 L (32-36) g/dL RDW 13.7 (11.5-14.0) % Plt Count 450 (150-450) x10^3/uL MPV 8.8 (7.5-11.0) fL Gran % 60.0 (36.0-66.0) % Immature Gran % (Auto) 0.4 (0.00-0.4) % Nucleat RBC Rel Count 0.0 (0.00-0.1) % Eos # (Auto) 0.27 (0-0.5) x10^3/uL Immature Gran # (Auto) 0.03 (0.00-0.03) x10^3u/L Absolute Lymphs (auto) 2.42 (1.0-4.6) x10^3/uL Absolute Monos (auto) 0.55 (0.0-1.3) x10^3/uL Absolute Nucleated RBC 0.00 (0.00-0.01) x10^3u/L Lymphocytes % 29.0 (24.0-44.0) % Monocytes % 6.6 (0.0-12.0) % Eosinophils % 3.2 (0.00-5.0) % Basophils % 0.8 (0.0-0.4) % Absolute Granulocytes 5.01 (1.4-6.9) x10^3/uL Basophils # 0.07 (0-0.4) x10^3/uL D-Dimer (0.0-0.50) mg/L Sodium (137-145) mmol/L Potassium (3.5-5.1) mmol/L Chloride (98-107) mmol/L Carbon Dioxide (22-30) mmol/L Anion Gap (5-15) MEQ/L BUN (7-17) mg/dL Creatinine (0.52-1.04) mg/dL Estimated GFR ML/MIN Glucose (74-106) mg/dL Calcium (8.4-10.2) mg/dL Total Bilirubin (0.2-1.3) mg/dL AST (14-36) U/L ALT (0-35) U/L Alkaline Phosphatase (38-126) U/L Troponin I (0.000-0.034) ng/mL NT-Pro-B Natriuret Pep (0-900) pg/mL Serum Total Protein (6.3-8.2) g/dL Albumin (3.5-5.0) g/dL - Progress Progress Note: 11/20/21 22:52 Pt wo evidence of CHF and DD neg. Most likely dependent edema Counseled pt/family regarding: lab results, diagnosis, need for follow-up - Departure Departure Disposition: Home Clinical Impression: Edema Condition: Stable Critical Care Time: No Referrals: APARNA VAZQUEZ MD [Primary Care Provider] - Follow up/PCP as directed Instructions: Dependent Edema (DC) Additional Instructions: Follow up with your family MD in 1-2 days Elevate legs Get thigh high Kevin Mueller at pharmacy Lasix once a day as needed Prescriptions: Furosemide [Lasix] 20 mg PO DAILY PRN PRN #10 tablet PRN Reason: swelling
[2021-11-20 21:47] LABS: Absolute Neutrophil Ct (ANC) 5.01 x10^3/uL (1.4-6.9); Basophil (Absolute #) 0.07 x10^3/uL (0-0.4); Eosinophil % 3.2 % (0.00-5.0); Eosinophil (Absolute #) 0.27 x10^3/uL (0-0.5); Hematocrit 38.3 % (35-47); Hemoglobin 11.5 g/dL (12.0-16.0); Lymphocyte (Absolute #) 2.42 x10^3/uL (1.0-4.6); Mean Cell Volume 90.5 fL (78-100); Mean Corpuscular Hemoglobin 27.2 pg (26-32); Mean Platelet Volume 8.8 fL (7.5-11.0); Monocyte (Absolute #) 0.55 x10^3/uL (0.0-1.3); Monocytes % 6.6 % (0.0-12.0); Platelet Count 450 x10^3/uL (150-450); Red Blood Count 4.23 x10^6/uL (4.1-5.4); Red Cell Distribution Width 13.7 % (11.5-14.0); White Blood Count 8.4 x10^3/uL (4.0-10.5)
[2021-11-20 22:16] LABS: ALBUMIN 4.1 g/dL (3.5-5.0); ANION GAP 10.3 MEQ/L (5-15); BILIRUBIN,TOTAL 0.2 mg/dL (0.2-1.3); Calcium 10.3 mg/dL (8.4-10.2); Creatinine 1 1.08 mg/dL (0.52-1.04); EST GLOMERULAR FILTRATION RATE 53.9 ML/MIN; Potassium 4.3 mmol/L (3.5-5.1); Total Protein 7.4 g/dL (6.3-8.2)
[2021-11-20 23:02] VITALS: BP 138/65; PULSE 78
[2021-11-21 01:52] VITALS: O2SAT 97
== END 2021-11-20 23:19 | disposition home or self-care (01) ==
LOC: ED 14:50
DX: R60.0 Localized edema (principal); E11.9 Type 2 diabetes mellitus without complications; I10 Essential (primary) hypertension; E78.5 Hyperlipidemia, unspecified; Z79.84 Long term (current) use of oral hypoglycemic drugs; Z79.899 Other long term (current) drug therapy
CPT/HCPCS: 36415; 80053; 83880; 84484; 85025; 85379; 99283